=== PATIENT | female | born 1975 | race Caucasian/White ===

== ENCOUNTER 2017-01-22 20:19 | Emergency (ER) | payer MEDICAID ==
[~2017-01-22 20:19] MED LIST: ATENOLOL25 MG PO; ECO81 PO; LIPI20 PO; PRI20 PO; ZES10 PO
[2017-01-22 21:53] VITALS: BP 149/86
== END 2017-01-22 21:53 | disposition home or self-care (01) ==
LOC: ED 20:19
DX: S61.211A Laceration without foreign body of left index finger without damage to nail, initial encounter (principal); I10 Essential (primary) hypertension; W45.8XXA Other foreign body or object entering through skin, initial encounter; Y93.89 Activity, other specified; Y99.8 Other external cause status; Y92.89 Other specified places as the place of occurrence of the external cause
CPT/HCPCS: A4570; J1885

== ENCOUNTER 2019-03-31 14:01 | Emergency (ER) | payer MEDICAID ==
[~2019-03-31] VITALS: Ht 162.6 cm; Wt 83.6 kg
[2019-03-31 14:05] VITALS: Ht 162.6 cm; Wt 83.6 kg
[2019-03-31 15:00] LABS: BASOPHIL % 0.2 % (0-2); PLATELET COUNT 246 x10^3mcL (130-400)
[2019-03-31 15:08] LABS: RED CELL DISTRIBUTION WIDTH 16.6 % (11.5-14.5)
[2019-03-31 15:17] LABS: CALCIUM 8.9 mg/dL (8.5-10.1); CARBON DIOXIDE 26.4 mmol/L (21-32); CHLORIDE SERUM 104 mmol/L (98-107); GFR1 > 60 mL/min; GLUCOSE SERUM 97 mg/dL (74-106); POTASSIUM SERUM 3.9 mmol/L (3.5-5.1); SODIUM SERUM 140 mmol/L (136-145)
[2019-03-31 15:22] LABS: ALBUMIN 3.6 g/dL (3.4-5.0); ALKALINE PHOSPHATASE 108 U/L (46-116); ALT/SGPT 39 U/L (14-59); AST/SGOT 24 U/L (15-37); BILIRUBIN TOTAL 0.5 mg/dL (0.20-1.00); TOTAL PROTEIN, SERUM 7.2 g/dL (6.4-8.2)
[2019-03-31 16:58] VITALS: BP 149/73
== END 2019-03-31 16:58 | disposition home or self-care (01) ==
LOC: ED 14:01
PROVIDERS: Emergency Medicine
DX: N12 Tubulo-interstitial nephritis, not specified as acute or chronic (principal); R51 Headache; I10 Essential (primary) hypertension
CPT/HCPCS: J0696; J1885; J7060

== ENCOUNTER 2019-06-12 16:12 | Emergency (ER) | payer MEDICAID ==
[~2019-06-12] VITALS: Ht 162.6 cm; Wt 84.8 kg
[2019-06-12 16:17] VITALS: Ht 162.6 cm; Wt 84.8 kg
[2019-06-12 18:05] VITALS: BP 146/73
== END 2019-06-12 18:05 | disposition home or self-care (01) ==
LOC: ED 16:12
DX: M54.5 Low back pain (principal); I10 Essential (primary) hypertension
CPT/HCPCS: J1885